=== PATIENT | female | born 1960 | race Caucasian/White ===

== ENCOUNTER → 2018-08-16 | Outpatient (CLI) | payer BC | LOC: MC.RAD 15:16 | DX: Z12.31 Encounter for screening mammogram for malignant neoplasm of breast (principal) ==

== ENCOUNTER → 2020-04-09 | Outpatient (CLI) | payer BC | LOC: COL.RAD 13:03 | DX: M47.816 Spondylosis without myelopathy or radiculopathy, lumbar region (principal); M54.17 Radiculopathy, lumbosacral region; M48.061 Spinal stenosis, lumbar region without neurogenic claudication ==

== ENCOUNTER → 2020-05-03 | Outpatient (CLI) | payer BC | LOC: COL.RAD 08:32 | DX: M54.16 Radiculopathy, lumbar region (principal) ==

== ENCOUNTER → 2020-06-25 | Outpatient (CLI) | payer BC | LOC: MHCPAIN 08:15 | DX: M79.2 Neuralgia and neuritis, unspecified (principal); G89.29 Other chronic pain; M25.571 Pain in right ankle and joints of right foot | CPT/HCPCS: G0463 ==

== ENCOUNTER → 2020-07-04 | Outpatient (CLI) | payer BC | LOC: MHCPAIN 08:07 | DX: M47.817 Spondylosis without myelopathy or radiculopathy, lumbosacral region (principal); M54.5 Low back pain; M54.16 Radiculopathy, lumbar region | CPT/HCPCS: J1100; Q9967 ==

== ENCOUNTER → 2020-07-16 | Outpatient (CLI) | payer BC | LOC: MHCPAIN 08:34 | DX: M79.2 Neuralgia and neuritis, unspecified (principal); G89.29 Other chronic pain; M54.16 Radiculopathy, lumbar region | CPT/HCPCS: G0463 ==

== ENCOUNTER → 2021-08-27 | Outpatient (CLI) | payer OTHER ==
[~2021-08-27] MED LIST: DIOVAN HCT 25 M1 TAB PO; GLUCOPHAGE XR500 M1 PO; NEURONTIN300 MG/CAP PO; PAMELOR50 MG PO; PRILOSEC 20MG20 MG PO; TENORMIN100 MG PO
== END ==
LOC: COL.RAD 09:33
DX: M17.12 Unilateral primary osteoarthritis, left knee (principal)

== ENCOUNTER 2021-10-10 07:55 | Inpatient (IN) | payer OTHER ==
[~2021-10-10] VITALS: Ht 165.1 cm; Wt 89.0 kg
[2021-10-10] MEDS ORDERED: NEURONTIN300 MG/CAP PO (09:06)
[2021-10-10] MEDS ORDERED: TENORMIN100 MG PO (09:06)
[2021-10-10] MEDS ORDERED: DIOVAN HCT 25 M1 TAB PO (09:07)
[2021-10-10] MEDS ORDERED: PRILOSEC 20MG20 MG PO (09:07)
[2021-10-10] MEDS ORDERED: GLUCOPHAGE XR500 M1 PO (09:07)
[2021-10-10] MEDS ORDERED: PAMELOR50 MG PO (09:08)
[2021-10-10 09:46] LABS: BASO % 0.3 % (0.0-2.0); GRAN # 5.4 K/mm3 (1.4-6.5); GRAN % 79.5 % (42.2-75.2); HEMATOCRIT 43.8 % (37.0-47.0); HEMOGLOBIN 15.6 g/dl (12.5-16.0); LYMPH # 0.7 K/mm3 (1.2-3.4); LYMPH % 10.4 % (20.0-51.0); MEAN CELL VOLUME 84 fl (80.0-100.0); MEAN CORPUSCULAR HEMOGLOBIN 30 pg (27.0-31.0); MEAN CORPUSCULAR HGB CONC 36 g/dl (33.0-37.0); MEAN PLATELET VOLUME 9.6 fl (7.4-10.4); MONO # 0.6 K/mm3 (0.1-0.6); MONO % 9.2 % (1.7-9.3); PLATELET COUNT 279 K/mm3 (130-400); RED BLOOD COUNT 5.19 M/mm3 (4.10-5.30); REDCELL DISTRIBUTION WIDTH-CV 13.8 % (11.5-14.5)
[2021-10-10 09:55] LABS: INR 1.2 (0.8-3.0)
[2021-10-10 10:01] LABS: ALBUMIN 3.7 gm/dL (3.4-4.8); BILIRUBIN,TOTAL 0.8 mg/dL (0.2-1.2); CREATININE, serum 1.31 mg/dL (0.57-1.11); POTASSIUM 3.8 mmol/L (3.5-4.5); TOTAL PROTEIN 7.7 gm/dL (6.2-8.1)
[2021-10-10 10:07] LABS: TROPONIN-I 0.015 ng/mL (0.00-0.033)
[2021-10-10 16:00] VITALS: BP 118/81; PULSE 109; TEMP 98.2
--- NOTE | 2021-10-10 17:36 | NUR ---
Admission assessment completed, alert/oriented, she seems a little "foggy" with her memory and some of her responses to questions are slow and delayed / she has to search for words, I am unsure if this is baseline for her, vital signs stable, she is requiring 3L.o2 to keep sats >90%, heart RRR/distal pulses are palpable, respirations unlabored at rest, lung bases diminished with some crackles, home meds/allergies/pharmacy reviewed with patient, I ahve discussed plan of care with , will continue to monitor
[2021-10-10 20:00] VITALS: BP 120/62; PULSE 110; TEMP 98.4
[2021-10-11 00:56] VITALS: BP 131/87; PULSE 104; TEMP 97.3
[2021-10-11 05:29] VITALS: BP 115/76; PULSE 106; TEMP 97.8
[2021-10-11 07:52] LABS: CREATININE, serum 0.75 mg/dL (0.57-1.11); POTASSIUM 3.5 mmol/L (3.5-4.5)
[2021-10-11 08:11] LABS: GRAN # 4.2 K/mm3 (1.4-6.5); GRAN % 70.3 % (42.2-75.2); HEMATOCRIT 39.9 % (37.0-47.0); HEMOGLOBIN 13.8 g/dl (12.5-16.0); LYMPH # 0.9 K/mm3 (1.2-3.4); LYMPH % 15.2 % (20.0-51.0); MEAN CELL VOLUME 86 fl (80.0-100.0); MEAN CORPUSCULAR HEMOGLOBIN 30 pg (27.0-31.0); MEAN CORPUSCULAR HGB CONC 35 g/dl (33.0-37.0); MEAN PLATELET VOLUME 10.2 fl (7.4-10.4); MONO # 0.8 K/mm3 (0.1-0.6); MONO % 13.7 % (1.7-9.3); PLATELET COUNT 317 K/mm3 (130-400); RED BLOOD COUNT 4.62 M/mm3 (4.10-5.30); REDCELL DISTRIBUTION WIDTH-CV 13.9 % (11.5-14.5)
[2021-10-11 08:19] VITALS: BP 130/77; PULSE 103; TEMP 97.8
--- NOTE | 2021-10-11 11:33 | NUR ---
Patient is A&Ox4, and very tearful this morning. Patient was speaking on the phone with family and crying. Patient is a SBA to the bathroom, and calls whenever she needs asssitance. Patient is stable on 5L O2 via NC.
[2021-10-11 13:00] VITALS: BP 132/78; PULSE 100; TEMP 97.6
--- NOTE | 2021-10-11 13:19 | NUR ---
Warehouser called patient and prayed over phone.
[2021-10-11 16:20] VITALS: BP 128/69; PULSE 105; TEMP 97.8
--- NOTE | 2021-10-11 17:47 | NUR ---
Patient seems to be in a better mood since this afternoon, not as tearful and eating more. Patient does not have [facility] of an appetitie but will eat bland foods such as apple sauce and bananas. Patient moving well, but is fatigued and feels weak.
[2021-10-11 21:53] VITALS: BP 103/59; PULSE 78; TEMP 98
[2021-10-12 00:42] VITALS: BP 153/79; PULSE 86; TEMP 97.6
--- NOTE | 2021-10-12 04:15 | NUR ---
new IV placed in left forearm on 1st attempt, lab collected with start. pt up to [facility] and urine specimen collected and sent to lab.
[2021-10-12 05:14] LABS: MUCOUS Present (NOT PRESENT); PH 5 (5-8); URINE APPEARANCE Clear (CLEAR/HAZY); URINE BACTERIA Rare (NONE SEEN); URINE BILIRUBIN Negative (NEGATIVE); URINE BLOOD Negative (NEGATIVE); URINE COLOR Yellow (YELLOW); URINE GLUCOSE 1+ (NEGATIVE); URINE KETONE 1+ (NEGATIVE); URINE LEUKOCYTE ESTERASE Negative (NEGATIVE); URINE NITRATE Negative (NEGATIVE); URINE PROTEIN(semi-quant) Negative (NEGATIVE); URINE RBC 0-2 /hpf (0-2)
[2021-10-12 05:17] LABS: BASO % 0.2 % (0.0-2.0); GRAN # 3.1 K/mm3 (1.4-6.5); GRAN % 65.3 % (42.2-75.2); HEMATOCRIT 37.4 % (37.0-47.0); HEMOGLOBIN 12.7 g/dl (12.5-16.0); LYMPH # 0.9 K/mm3 (1.2-3.4); LYMPH % 19.3 % (20.0-51.0); MEAN CELL VOLUME 87 fl (80.0-100.0); MEAN CORPUSCULAR HEMOGLOBIN 30 pg (27.0-31.0); MEAN CORPUSCULAR HGB CONC 34 g/dl (33.0-37.0); MEAN PLATELET VOLUME 10.1 fl (7.4-10.4); MONO # 0.7 K/mm3 (0.1-0.6); MONO % 14.4 % (1.7-9.3); PLATELET COUNT 347 K/mm3 (130-400); RED BLOOD COUNT 4.28 M/mm3 (4.10-5.30)
[2021-10-12 05:30] LABS: TRICYCLIC ANTIDEPRESS URINE POSITIVE
[2021-10-12 05:35] LABS: C-REACTIVE PROTEIN 1.83 mg/dL (0.00-0.50); CALCIUM 10.6 mg/dL (8.4-10.2); CREATININE, serum 0.74 mg/dL (0.57-1.11); POTASSIUM 4.1 mmol/L (3.5-4.5)
[2021-10-12 05:53] LABS: COLLECTION METHOD CLEAN CATCH
[2021-10-12 06:10] VITALS: BP 145/76; PULSE 86; TEMP 97.6
[2021-10-12 08:04] VITALS: BP 141/78; PULSE 102; TEMP 98
--- NOTE | 2021-10-12 10:34 | NUR ---
Patient laying in bed on the phone with family upon enteirng the room. Morning medications administered w/o difficulty. Patient does take her oxygen off d/t nasal irritation. This RN placed a bubbler on the oxygen to help w/ dryness. Patient was assisted with a shower as well.
[2021-10-12 12:47] VITALS: BP 132/68; PULSE 99; TEMP 97.9
[2021-10-12 16:00] VITALS: BP 136/76; PULSE 86; TEMP 97.8
--- NOTE | 2021-10-12 18:27 | NUR ---
Patient has done well today. Has remained in bed since her shower. Has not had any complaints/concerns.
[2021-10-12 20:17] VITALS: BP 152/88; PULSE 80; TEMP 98.2
[2021-10-13 00:43] VITALS: BP 104/59; BP 136/79; PULSE 86; TEMP 98.2
[2021-10-13 04:03] VITALS: BP 143/73; PULSE 77; TEMP 97.5
--- NOTE | 2021-10-13 07:21 | NUR ---
pt on 5L O2 this am, pt pulls out NC frequently while sleeping, refused to have any securement tape on face. up to restroom with hand held assist. SS given @HS. taking po fluids well, not much solid foods yet.
[2021-10-13 08:19] VITALS: BP 140/76; PULSE 83; TEMP 97.5
[2021-10-13 08:22] LABS: BASO % 0.2 % (0.0-2.0); GRAN # 3.5 K/mm3 (1.4-6.5); GRAN % 62.1 % (42.2-75.2); HEMOGLOBIN 12.4 g/dl (12.5-16.0); LYMPH # 1.3 K/mm3 (1.2-3.4); LYMPH % 22.8 % (20.0-51.0); MEAN CELL VOLUME 86 fl (80.0-100.0); MEAN CORPUSCULAR HEMOGLOBIN 30 pg (27.0-31.0); MEAN CORPUSCULAR HGB CONC 34 g/dl (33.0-37.0); MEAN PLATELET VOLUME 10.2 fl (7.4-10.4); MONO # 0.8 K/mm3 (0.1-0.6); MONO % 13.6 % (1.7-9.3); PLATELET COUNT 354 K/mm3 (130-400); RED BLOOD COUNT 4.18 M/mm3 (4.10-5.30); REDCELL DISTRIBUTION WIDTH-CV 13.8 % (11.5-14.5)
[2021-10-13 08:27] LABS: HEMATOCRIT 36.1 % (37.0-47.0)
[2021-10-13 08:39] LABS: ALBUMIN 3.1 gm/dL (3.4-4.8); BILIRUBIN,TOTAL 0.5 mg/dL (0.2-1.2); CALCIUM 10.2 mg/dL (8.4-10.2); CREATININE, serum 0.73 mg/dL (0.57-1.11); POTASSIUM 3.6 mmol/L (3.5-4.5)
[2021-10-13 09:02] LABS: BILIRUBIN,DIRECT 0.2 mg/dL (0.0-0.5)
--- NOTE | 2021-10-13 09:21 | NUR ---
Patient sleeping in bed upon entering the room. Patient does not have any complaints/concerns this morning. Breakfast was placed in the room for the patient and blinds were opened a bit to provide natural lighting. Patient encourage to use call light if anything is needed.
--- NOTE | 2021-10-13 10:27 | NUR ---
The patient is COVID positive. SW contacted the patient to discuss discharge plan. The patient lives in [place] with her , Karen (ph#[phone]). She reports independence with ADLs and has a cane. She reports that she was struggling a big with getting around before she came in. She states that her helped her. The patient's PCP is Dr. Aneesh Stewart and she receives her medications from [facility] in [place]. She reports no difficulties obtaining her meds. The patient states that she does not have a DPOA-HC. The patient plans on returning home with her upon discharge. She is currently requiring 5 liters of oxygen. SW to continue to monitor. *Discharge plan: home with *
[2021-10-13 12:19] VITALS: BP 157/86; PULSE 81; TEMP 97.6
[2021-10-13 16:08] VITALS: BP 153/82; PULSE 78; TEMP 97.9
--- NOTE | 2021-10-13 19:13 | NUR ---
Patient assisted to the restroom by this RN. Patient was hesitant but steady w/ ambulation. New IV was started in the right hand by Lilia - RN. This is the patient's 3rd new IV. This RN was spoken to by Mariaelena about the possibilty of a PICC being placed. This RN spoke with the patient and the patient was in agreeance with receiving one. Dr. Kelly was notified.
[2021-10-13 20:00] VITALS: BP 168/85; PULSE 74
--- NOTE | 2021-10-13 23:42 | NUR ---
BEFORE ASSESSMENT AND VITALS, THIS RN ASSISTED PT TO RESTROOM. UPON RETURNING TO BED, PT STATED SHE DID NOT FEEL WELL. THIS RN TOOK VITALS, OXYGEN WAS NOTED TO BE AT 84%. THIS RN BUMPED OXYGEN TO 6 L. THIS RAISED OXYGEN SATURATION TO APPROXIMATELY 87-88%. THIS RN THEN MOVED UP TO 7L. GOT TO ABOUT 90% AND RISING, THIS RN INSTRUCTED PT TO BREATH THROUGH NOSE TO HELP REOXYGENATE AND USE NASAL CANNULA PROPERLY. PT IS COOPERATIVE. ASSESSMENT COMPLETED. CALL LIGHT IN REACH, TOLD TO USE CALL LIGHT IF NEED TO GET UP FOR ANY REASON. PT VERBALIZED UNDERSTANDING. NO OTHER NEEDS AT THIS TIME.
[2021-10-14] VITALS (7 sets, daily range): BP systolic 138–1344; BP diastolic 72–88; PULSE 67–90; TEMP 94.5–98.2
[2021-10-14 06:14] LABS: HEMOGLOBIN 12.6 g/dl (12.5-16.0); MEAN CELL VOLUME 86 fl (80.0-100.0); MEAN CORPUSCULAR HEMOGLOBIN 30 pg (27.0-31.0); MEAN CORPUSCULAR HGB CONC 35 g/dl (33.0-37.0); MEAN PLATELET VOLUME 9.8 fl (7.4-10.4); PLATELET COUNT 397 K/mm3 (130-400); REDCELL DISTRIBUTION WIDTH-CV 13.8 % (11.5-14.5)
[2021-10-14 06:17] LABS: HEMATOCRIT 36.3 % (37.0-47.0)
--- NOTE | 2021-10-14 06:27 | NUR ---
PT STAYED ON 7 L NC THROUGH NIGHT, SATURATION GOT TO 94% BEST. THIS RN HAD TO REPLACE NC INTO PATIENT'S NARES MULTIPLE TIMES THROUGHOUT NIGHT. PT DENIES ANY PAINS OR COMPLAINTS. PT SLEPT MOST OF NIGHT. THIS RN HAD SOME DIFFICULTY WITH IV FLUSHING. EMIGDIO ERVIN HAD STATED TO DR. GLASER THAT A PICC MAY BE NEEDED FOR FURTHER USE.
[2021-10-14 06:32] LABS: CALCIUM 10.7 mg/dL (8.4-10.2); CREATININE, serum 0.74 mg/dL (0.57-1.11); POTASSIUM 3.7 mmol/L (3.5-4.5)
[2021-10-14 07:56] LABS: LYMPHOCYTE 20 % (20.0-51.0); METAMYELOCYTE 1 % (0-0); NEUTROPHILS 70 % (42.0-75.2); PLATELET ESTIMATE NORMAL (NORMAL)
--- NOTE | 2021-10-14 08:47 | NUR ---
This RN walked into pt.'s room and she was in the bathroom. Pt. walked out of the bathroom w/ oxygen off. Pt.'s O2 sat was 84%. Pt. was originally on 7L NC. This RN titrated pt.'s oxygen to 10L and after some time pt. is now 92% on 10L. This RN also raised pt.'s bed to about 60 degrees. Pt. denies other symptoms at this time.
--- NOTE | 2021-10-14 09:06 | NUR ---
Pt.'s temp is low at this time. This RN was unable to obtain an alternate thermometer to attempt to check temp with a different device. Dr. Martinez notified of low temp, no new orders at this time. Dr. Martinez to round this AM.
--- NOTE | 2021-10-14 18:08 | NUR ---
The pt. has been encouraged by this RN throughout the day to cough and deep breathe. Pt. brushed her teeth today with encouragement. Pt. also encouraged to sit up in bed and not lay flat. IV medications infusing at this time. Pt. is now on 3L NC and her O2 sat is 95%. Pt. has been OOB independently throughout the day. Pt. makes her needs known. Call light and belongings in reach.
--- NOTE | 2021-10-14 21:58 | NUR ---
PT IS LAYING IN BED WITH NC SLIGHTLY OUT OF NOSTRILS. PT STATES BREATHING FEELS BETTER. PT REFUSED ROBITUSSEN DUE TO SHE DOES NOT FEEL LIKE SHE NEEDS IT AT THIS TIME. 6 UNITS OF INSULIN GIVEN. PT REMAINED PLEASANT. THIS RN ENCOURAGED DEEP BREATHING/COUGHING EXCERCISES AND ENCOURAGED MOVEMENT TO HELP PATIENT GAIN STRENGTH BACK. PT VERBALIZED UNDERSTANDING. CALL LIGHT IN REACH, NO OTHER NEEDS AT THIS TIME.
[2021-10-15] VITALS (7 sets, daily range): BP systolic 132–171; BP diastolic 68–108; PULSE 65–88; TEMP 97–98.2
--- NOTE | 2021-10-15 00:09 | NUR ---
DURING MIDNIGHT VITALS, THIS RN FOUND PT TO HAVE NC OUT OF NOSTRILS. THIS RN REPLACED NC. OXYGEN SATURATION AROUND 90%. THIS RN WAS PREPARING TO LEAVE ROOM AFTER GIVING HEPARIN, THIS RN WITNESSED PT REMOVING NC OUT OF NOSTRILS AND PLACING ON SKIN IN BETWEEN MOUTH AND NOSE. THIS RN EDUCATED AND REINFORCED THE NEED OF OXYGEN AT THE TIME BECAUSE OF HER OXYGEN SATURATION LEVELS AND MAKING SURE BODY IS RECEIVING OXYGEN IT NEEDS. PT NODDED HEAD AND REPLACED NC. WILL CONTINUE TO MONITOR.
--- NOTE | 2021-10-15 05:56 | NUR ---
PT HAD AN UNEVENTFUL NIGHT. PT HAD TO BE REMINDED TO KEEP OXYGEN ON THROUGHOUT NIGHT. PT ENCOURAGED TO SIT UP MORE AND TRY TO GET MORE DEEP BREATHS IN. PT STATED OK, BUT HARD TO ENCOURAGE DURING SLEEP. PT REFUSED BOTH DOSES OF ROBITUSSEN DUE TO PATIENT DID NOT THINK SHE NEEDED AT THIS TIME. PT TOOK ALL OTHER MEDICATIONS ORDERED. PT SLEEPY DURING MEDICATION PASSES BUT PLEASANT. CALL LIGHT PICKED UP OFF FLOOR AND PLACED IN REACH. NO OTHER NEEDS AT THIS TIME.
[2021-10-15 07:17] LABS: MEAN CELL VOLUME 86 fl (80.0-100.0); MEAN CORPUSCULAR HEMOGLOBIN 30 pg (27.0-31.0); MEAN CORPUSCULAR HGB CONC 35 g/dl (33.0-37.0); MEAN PLATELET VOLUME 9.6 fl (7.4-10.4); PLATELET COUNT 379 K/mm3 (130-400); RED BLOOD COUNT 3.96 M/mm3 (4.10-5.30); REDCELL DISTRIBUTION WIDTH-CV 13.6 % (11.5-14.5)
[2021-10-15 07:24] LABS: HEMATOCRIT 34.1 % (37.0-47.0)
[2021-10-15 07:37] LABS: CREATININE, serum 0.66 mg/dL (0.57-1.11); MAGNESIUM 1.6 mg/dL (1.6-2.6); PHOSPHOROUS 2.6 mg/dL (2.3-4.7); POTASSIUM 3.7 mmol/L (3.5-4.5)
[2021-10-15 08:52] LABS: BAND 1 % (0-10); LYMPHOCYTE 13 % (20.0-51.0); METAMYELOCYTE 1 % (0-0); NEUTROPHILS 75 % (42.0-75.2); PLATELET ESTIMATE NORMAL (NORMAL)
--- NOTE | 2021-10-15 10:42 | NUR ---
PT RESTING IN BED THIS MORNING. MEDICATIONS GIVEN PER MAR. SHIFT ASSESSMENT COMPLETED. DENIES ANY PAIN. IS WANTING TO TAKE A SHOWER TODAY. IS ALERT AND ORIENTED TO EVERYTHING EXCEPT THE YEAR. APPEARS TO HAVE SOME CONFUSION. REPEATEDLY REMINDED TO PUT NC BACK IN NOSTRILS. WILL CONTINUE TO MONITOR.
--- NOTE | 2021-10-15 15:31 | NUR ---
PT is recommending home health vs post-acute rehab. SW met with the patient to review discharge plan and to discuss therapy's recommendation. The patient reports that she does fine at home with her and declined both services. The patient had an exercise ox and she qualified for 2 liters of oxygen with ambulation. SW informed the patient of this and the local DME companies. The patient reports that she would prefer to get the oxygen from [facility] out of [place]. She states that her can pick it up. The patient is to tentatively discharge tomorrow, 10/16.
--- NOTE | 2021-10-15 21:11 | NUR ---
Patient assessed. Patient A/Ox3. Patient denies any pain or SOB. No N/V or diarrhea. BP 171/87 tonight. Called [facility] and received order for PRN hydralazine. PRN hydralazine given via IV per JAN. Patient has history of HTN but she is not on any BP medications currently. Checked [facility] and it was partially completed. Asked patient regarding her current medications, but patient does not remember her medications dosage. Called patient's Karen around 9pm and asked regarding current medications. Patient's does not remember medication dosage. Will endorse to day shift nurse and check with her pharmacy to update [facility]. Ice water provided per patient request. Call light in reach. Will continue to monitor.
[2021-10-16 04:17] VITALS: BP 140/72; PULSE 66; TEMP 97.9
[2021-10-16 06:51] LABS: HEMOGLOBIN 12.6 g/dl (12.5-16.0); MEAN CELL VOLUME 85 fl (80.0-100.0); MEAN CORPUSCULAR HEMOGLOBIN 30 pg (27.0-31.0); MEAN CORPUSCULAR HGB CONC 35 g/dl (33.0-37.0); MEAN PLATELET VOLUME 9.8 fl (7.4-10.4); PLATELET COUNT 461 K/mm3 (130-400); RED BLOOD COUNT 4.22 M/mm3 (4.10-5.30); REDCELL DISTRIBUTION WIDTH-CV 13.7 % (11.5-14.5)
[2021-10-16 07:16] LABS: C-REACTIVE PROTEIN 0.88 mg/dL (0.00-0.50); CALCIUM 10.1 mg/dL (8.4-10.2); CREATININE, serum 0.64 mg/dL (0.57-1.11); MAGNESIUM 1.7 mg/dL (1.6-2.6); PHOSPHOROUS 2.3 mg/dL (2.3-4.7); POTASSIUM 3.6 mmol/L (3.5-4.5)
[2021-10-16 08:20] VITALS: BP 132/69; PULSE 90; TEMP 97.2
[2021-10-16 08:56] LABS: EOSINOPHIL 1 % (0-4); LYMPHOCYTE 15 % (20.0-51.0); MYELOCYTE 2 % (0-0); NEUTROPHILS 69 % (42.0-75.2); PLATELET ESTIMATE INCREASED (NORMAL)
[2021-10-16] MEDS ORDERED: DECADRON6 MG PO (11:13)
--- NOTE | 2021-10-16 11:16 | NUR ---
PT RESTING IN BED. MORNING MEDICATIONS GIVEN. SHIFT ASSESSMENT COMPLETED. PT DENIES ANY PAIN OR NEEDS. IS EAGER TO GO HOME. WILL CONTINUE TO MONITOR.
--- NOTE | 2021-10-16 11:25 | NUR ---
Phone call made to the patient to notify her of dc and to confirm that she [place] [facility] reports that this is the company she would like to stay with and confirms that her will be able to picker and sorter load and unload her oxygen on the way. Oxygen orders signed by hospitalist and faxed to [facility] in [place]. Contact made with the patient's Karen and provided update. He will picker and sorter load and unload the oxygen on his way. Discharge plan: Home with spouse.Oxygen faxed to [facility].
[2021-10-16 12:55] VITALS: BP 170/101; PULSE 77; TEMP 98.4
[2021-10-17 07:47] LABS: PATHOLOGY DIFF REVIEW OK
== END 2021-10-16 14:30 | disposition home or self-care (01) | DRG 177 ==
LOC: COL.ER 07:55 → MEDICAL 11:36
PROVIDERS: Emergency Medicine; Internal Medicine; ADMIT Student in an Organized Health Care Education/Training Program
PROC: XW033E5 Introduction of Remdesivir Anti-infective into Peripheral Vein, Percutaneous Approach, New Technology Group 5 (ICD-10-PCS; principal; 2021-10-10)
DX: U07.1 COVID-19 (principal); J12.82 Pneumonia due to coronavirus disease 2019; J96.01 Acute respiratory failure with hypoxia; G90.50 Complex regional pain syndrome I, unspecified; G93.49 Other encephalopathy; N17.9 Acute kidney failure, unspecified; I10 Essential (primary) hypertension; K21.9 Gastro-esophageal reflux disease without esophagitis; E11.42 Type 2 diabetes mellitus with diabetic polyneuropathy; E83.52 Hypercalcemia; Z79.84 Long term (current) use of oral hypoglycemic drugs; Z73.0 Burn-out
CPT/HCPCS: 99222-AI; 99232-AI; 99233-AI; 99239; J0360; J0696; J1100; J1644; J1815; J3475; J7030; J7050; J8540; Q9967